=== PATIENT | male | born 1980 | race Caucasian/White ===

== ENCOUNTER 2023-02-11 10:01 | Outpatient (CLI) | payer BC, SELFPAY | END 2023-02-11 10:02 | disposition home or self-care (01) | PROVIDERS: PCP Emergency Medicine; Visit Provider Physician Assistant Medical | DX: I10 Essential (primary) hypertension (principal) | CPT/HCPCS: 80076; 83690; 84443 ==

== ENCOUNTER 2023-12-01 14:20 | Outpatient (CLI) | payer BC, SELFPAY | END 2023-12-01 14:21 | disposition home or self-care (01) | PROVIDERS: PCP Emergency Medicine; Visit Provider Emergency Medicine | DX: R10.9 Unspecified abdominal pain (principal); I10 Essential (primary) hypertension; N40.0 Benign prostatic hyperplasia without lower urinary tract symptoms | CPT/HCPCS: 86140; G0103 ==

== ENCOUNTER 2025-02-20 08:36 | Outpatient (CLI) | payer BC, SELFPAY | END 2025-02-20 08:37 | disposition home or self-care (01) | LOC: NFLDREF 02-25 05:41 | PROVIDERS: PCP Emergency Medicine; Referring Provider Emergency Medicine; Visit Provider Emergency Medicine | DX: I10 Essential (primary) hypertension (principal); H10.13 Acute atopic conjunctivitis, bilateral; Z13.6 Encounter for screening for cardiovascular disorders | CPT/HCPCS: 80048; 80061 ==